=== PATIENT | female | born 1965 | race Caucasian/White ===

== ENCOUNTER 2021-10-01 18:01 | Emergency (ER) | payer BC ==
--- NOTE | 2021-10-01 19:23 | RAD REPORT ---
EXAM DESCRIPTION: RAD - Knee Left 3 View - 10/01/2021 7:10 pm CLINICAL HISTORY: Left knee pain FINDINGS: No fracture or dislocation is seen. Moderate joint effusion If patient continues have symptoms to suggest an occult fracture, ligamentous or meniscal injury MRI would be recommended
--- NOTE | 2021-10-01 20:08 | EDPHYS ---
Physician Documentation [facility] Name: Gayle Richard Age: 56 yrs Sex: Female : 1965 Arrival Date: 10/01/2021 Time: 18:03 Bed 9 Private MD: Mirian Matta ED Physician Yuriy Wu HPI: 10/01 20:18 This 56 yrs old Female presents to ER via Wheelchair with complaints of Knee Injury. kb 20:18 The patient presents with pain, swelling. The complaints affect the left knee. Context: kb The problem was sustained at home, resulted from an unknown cause, the patient can partially bear weight, the patient is able to ambulate. Onset: The symptoms/episode began/occurred today. Modifying factors: The symptoms are alleviated by nothing. the symptoms are aggravated by movement, weight bearing. Associated signs and symptoms: Pertinent positives: swelling, Pertinent negatives calf tenderness, fever, nausea, numbness, rash, tingling, vomiting, warmth, weakness. Treatment prior to arrival includes: no previous treatment. Severity of symptoms: At their worst the symptoms were moderate, in the emergency department the symptoms are unchanged. The patient has not experienced similar symptoms in the past. The patient has not recently seen a physician. Historical: - Allergies: 18:23 No Known Allergies; aa5 - PMHx: 18:23 None; aa5 - PSHx: 18:23 rhinoplasty; aa5 - Immunization history:: Client reports receiving the 1st dose of the Covid vaccine. - Social history:: Smoking status: Patient denies any tobacco usage or history of. ROS: 20:18 Constitutional: Negative for fever, chills, and weight loss. kb 20:18 MS/extremity: Positive for pain, swelling, of the left knee. 20:18 All other systems are negative. Exam: 20:18 Constitutional: This is a well developed, well nourished patient who is awake, alert, kb and in no acute distress. Head/Face: Normocephalic, atraumatic. ENT: Moist Mucous membranes Respiratory: Respirations even and unlabored. No increased work of breathing, no retractions or nasal flaring. Skin: Warm, dry with normal turgor. Normal color. Neuro: Awake and alert, GCS 15, oriented to person, place, time, and situation. Moves all extremities. Normal gait. Psych: Awake, alert, with orientation to person, place and time. Behavior, mood, and affect are within normal limits. 20:18 Musculoskeletal/extremity: Extremities: grossly normal except: noted in the left knee: pain, swelling, ROM: no acute changes, Circulation is intact in all extremities. Sensation intact. Weight bearing: can bear weight with assistance only, uses crutches. Vital Signs: 18:22 BP 147 / 99; Pulse 113; Resp 18 S; Temp 97.0(TE); Pulse Ox 100% on R/A; Weight 90.72 kg aa5 (R); Height 5 ft. 6 in. (167.64 cm) (R); 18:34 BP 155 / 95; Pulse 107; Resp 18; Pulse Ox 98% on R/A; Pain 7/10; ld1 18:22 Body Mass Index 32.28 (90.72 kg, 167.64 cm) aa5 MDM: 18:32 Patient medically screened. kb 20:17 Data reviewed: vital signs, nurses notes. Data interpreted: Pulse oximetry: on room air kb is 98 %. Interpretation: normal. Counseling: I had a detailed discussion with the patient and/or guardian regarding: the historical points, exam findings, and any diagnostic results supporting the discharge/admit diagnosis, radiology results, the need for outpatient follow up, a orthopedic surgeon, to return to the emergency department if symptoms worsen or persist or if there are any questions or concerns that arise at home. 10/01 18:24 Order name: Knee Left 3 View XRAY; Complete Time: 20:02 aa5 10/01 20:19 Order name: Miguel Wrap; Complete Time: 20:35 kb Administered Medications: No medications were administered Disposition: 10/02 12:38 Co-signature as Attending Physician, Yuriy Wu MD I agree with the assessment and kdr plan of care. Disposition Summary: 10/01/21 20:08 Discharge Ordered Location: Home kb Condition: Stable kb Diagnosis - Pain in left knee kb Followup: kb - With: Emergency Department - When: As needed - Reason: Worsening of condition Followup: kb - With: Private Physician - When: 2 - 3 days - Reason: Recheck today's complaints, Continuance of care, Re-evaluation by your physician Discharge Instructions: - Discharge Summary Sheet kb - Knee Effusion, [id number] kb - Acute Knee Pain, Adult, [id number] kb Forms: - Medication Reconciliation Form kb - Thank You Letter kb - Antibiotic Education kb - Prescription Opioid Use kb Prescriptions: - Diclofenac Sodium 75 mg Oral tablet,delayed release (DR/EC) - take 1 tablet by ORAL route 2 times per day As needed; 30 tablet; Refills: 0, kb Product Selection Permitted Signatures: Dispatcher [employer] EDSusan Rosas, STUDIO CONTROL OPERATOR-C STUDIO CONTROL OPERATOR-Venanciob Yuriy Wu MD MD kdr Calderon, Audri, RN RN aa5
--- NOTE | 2021-10-01 20:08 | ER ---
Nurse's Notes [facility] Name: Gayle Richard Age: 56 yrs Sex: Female : 1965 Arrival Date: 10/01/2021 Time: 18:03 Bed 9 Private MD: Mirian Matta Diagnosis: Pain in left knee Presentation: 10/01 18:22 Chief complaint: Patient states: twisted left knee today. Denies fall. aa5 18:22 Coronavirus screen: At this time, the client does not indicate any symptoms associated aa5 with coronavirus-19. Ebola Screen: No symptoms or risks identified at this time. Initial Sepsis Screen: Does the patient meet any 2 criteria? No. Patient's initial sepsis screen is negative. Does the patient have a suspected source of infection? No. Patient's initial sepsis screen is negative. Risk Assessment: Do you want to hurt yourself or someone else? Patient reports no desire to harm self or others. Onset of symptoms was September 2021. 18:22 Acuity: ERICKA 4 aa5 18:22 Method Of Arrival: Wheelchair aa5 Historical: - Allergies: 18:23 No Known Allergies; aa5 - PMHx: 18:23 None; aa5 - PSHx: 18:23 rhinoplasty; aa5 - Immunization history:: Client reports receiving the 1st dose of the Covid vaccine. - Social history:: Smoking status: Patient denies any tobacco usage or history of. Screenin:34 Abuse screen: Denies threats or abuse. Denies injuries from another. Nutritional ld1 screening: No deficits noted. Tuberculosis screening: No symptoms or risk factors identified. Fall Risk None identified. Assessment: 18:34 General: Appears in no apparent distress. comfortable, Behavior is calm, cooperative, ld1 appropriate for age, anxious. Pain: Complains of pain in left knee Pain does not radiate. Pain currently is 7 out of 10 on a pain scale. Quality of pain is described as throbbing, Pain began 4 hours ago. Is continuous. Neuro: Level of Consciousness is awake, alert, obeys commands, Oriented to person, place, time, situation. Cardiovascular: Capillary refill < 3 seconds Patient's skin is warm and dry. Respiratory: Airway is patent Respiratory effort is even, unlabored, Respiratory pattern is regular, symmetrical. GI: Abdomen is round non-distended. : No signs and/or symptoms were reported regarding the genitourinary system. EENT: No signs and/or symptoms were reported regarding the EENT system. Derm: No signs and/or symptoms reported regarding the dermatologic system. Musculoskeletal: Range of motion: limited in left knee Reports pain in left knee. Vital Signs: 18:22 BP 147 / 99; Pulse 113; Resp 18 S; Temp 97.0(TE); Pulse Ox 100% on R/A; Weight 90.72 kg aa5 (R); Height 5 ft. 6 in. (167.64 cm) (R); 18:34 BP 155 / 95; Pulse 107; Resp 18; Pulse Ox 98% on R/A; Pain 7/10; ld1 18:22 Body Mass Index 32.28 (90.72 kg, 167.64 cm) 5 ED Course: 18:03 Patient arrived in ED. as 18:03 Mirian Matta is Private Physician. as 18:22 Arm band placed on. 5 18:23 Triage completed. aa5 18:24 [facility] kb 18:24 Yuriy Wu MD is Attending Physician. kb 18:34 Yue Schafer, RICK is Primary Nurse. ld1 18:34 Patient has correct armband on for positive identification. Placed in gown. Bed in low ld1 position. Call light in reach. Side rails up X2. Pulse ox on. NIBP on. Door closed. Noise minimized. 18:34 No provider procedures requiring assistance completed. ld1 19:10 Knee Left 3 View XRAY In Process Unspecified. EDMS Administered Medications: No medications were administered Outcome: 20:08 Discharge ordered by . kb 20:49 Patient left the ED. [facility] Signatures: Dispatcher [employer] EDMS Susan Field FNP-C FNP-Sandie Ivy Audri RN RN [facility] Kenneth Hutson [facility] Yue Schafer, RN RN ld1 Corrections: (The following items were deleted from the chart) 18:23 18:22 Chief complaint: Patient states: twisted left knee 5 5
[2021-10-01 21:01] VITALS: TEMP 97
[2021-10-01 21:03] VITALS: BP 155/95; O2SAT 98
== END 2021-10-01 20:49 | disposition home or self-care (01) ==
LOC: ER 18:01
DX: M25.562 Pain in left knee (principal)
CPT/HCPCS: 99283

== ENCOUNTER 2024-10-07 04:29 | Emergency (ER) | payer BC ==
--- OUTSIDE RECORDS SUMMARY | 2024-10-07 04:32 | XMS REPORT | Continuity of Care Document ---
Author Name Unknown Address [address] [place] [address] [employer] Address [address] [place] [id number] Care Team Providers Care Woods Rider Name Role Phone [email or web address] Attending Clinician Unavaila ble [email or web address] Admitting Clinician Unavaila ble Encounters Start Date/Time End Date/Time Encounter Type Admission Type Attending Clinicians Care Facility Care Department Encounter ID Source 2023-09-07 00:00:00 2023-09-07 00:00:00 Outpatient [email or web address] [facility] [id number] [facility]
--- NOTE | 2024-10-07 04:59 | EDPHYS ---
Physician Documentation [facility] Name: Gayle Richard Age: 59 yrs Sex: Female : 1965 Arrival Date: 10/07/2024 Time: 04: Bed 7 Private MD: ED Physician Navneet Macedo HPI: 10/07 04:44 This 59 yrs old Female presents to ER via Unassigned with complaints of Hand sp4 Swelling. 10/08 01:42 Patient presents with acute left hand pain and swelling secondary to recent pinning of sp4 the left small finger. Historical: - Allergies: 10/07 05:00 No Known Allergies; ha1 - PMHx: 05:00 None; ha1 - PSHx: 05:00 rhinoplasty; ha1 - Immunization history:: Adult Immunizations up to date. - Infectious Disease History:: Denies. - Social history:: Smoking status: Patient denies any tobacco usage or history of. - Family history:: not pertinent. ROS: 10/08 01:48 Constitutional: Negative for fever, chills, and weight loss, positive left hand pain sp4 and swelling All other systems are negative, Exam: 01:48 Constitutional: This is a well developed, well nourished patient who is awake, alert, sp4 and in no acute distress. Head/Face: Normocephalic, atraumatic. Eyes: Pupils equal round and reactive to light, extra-ocular motions intact. Lids and lashes normal. Conjunctiva and sclera are not injected. Cornea within normal limits. Periorbital areas with no swelling, redness, or edema. ENT: Nares patent. No nasal discharge, no septal abnormalities noted. Tympanic membranes are normal and external auditory canals are clear. Oropharynx with no redness, swelling, or masses, exudates, or evidence of obstruction, uvula midline. Mucous membranes moist. Neck: Trachea midline, no thyromegaly or masses palpated, and no cervical lymphadenopathy. Supple, full range of motion without nuchal rigidity, or vertebral point tenderness. Chest/axilla: Normal chest wall appearance and motion. Nontender with no deformity. No lesions are appreciated. Cardiovascular: Regular rate and rhythm with a normal S1 and S2. No gallops, murmurs, or rubs. Normal PMI, no JVD. No pulse deficits. Respiratory: Lungs have equal breath sounds bilaterally, clear to auscultation and percussion. No rales, rhonchi or wheezes noted. No increased work of breathing, no retractions or nasal flaring. Abdomen/GI: Soft, with normal bowel sounds. No distension or tympany. No guarding or rebound. No evidence of tenderness throughout. Back: No spinal tenderness. No costovertebral tenderness. Skin: Warm, dry with normal turgor. Normal color with no rashes, no lesions, and no evidence of cellulitis. MS/ Extremity: Pulses equal, no cyanosis. Neurovascular intact. Full, normal range of motion. Positive for left hand small amount of swelling and tenderness at the site of the postoperative puncture wound at left dorsal left fifth metacarpal area. Neuro: Awake and alert, GCS 15, oriented to person, place, time, and situation. Cranial nerves II-XII grossly intact. Motor strength 5/5 in all extremities. Sensory grossly intact. Psych: Awake, alert, with orientation to person, place and time. Behavior, mood, and affect are within normal limits Vital Signs: 10/07 04:36 BP 155 / 114; Pulse 92; Resp 19 S; Temp 98.1(T); Pulse Ox 96% on R/A; Weight 90.72 kg; ha1 MDM: 04:58 Medical Screening Exam initiated sp4 10/08 01:51 Differential diagnosis: closed fracture, contusion, abrasion, tendonitis, Post sp4 operative infection. Data reviewed: vital signs, nurses notes. ED course: Patient was informed that she should be covered by Bactrim and cephalexin for presumed postoperative puncture wound infection. She should follow-up with her orthopedist Dr. Pearce for repeat examination of the left hand. Administered Medications: 10/07 05:24 Drug: Trimethoprim-Sulfamethoxazole PO (160 mg-800 mg (DS) 1 tablet PO once Route: PO; al5 05:24 Follow up: Response: No adverse reaction; Medication administered at discharge. al5 05:24 Drug: Cephalexin PO 500 mg PO once Route: PO; al5 05:24 Follow up: Response: No adverse reaction; Medication administered at discharge. al5 Disposition Summary: 10/07/24 04:58 Discharge Ordered Notes: Location: Home sp4 Problem: new sp4 Symptoms: have improved sp4 Condition: Stable sp4 Diagnosis - Left hand Post Operative puncture infection , Left hand post operative swelling sp4 Followup: sp4 - With: Codey Poole MD - When: 7 - 10 days - Reason: Recheck today's complaints Discharge Instructions: - Discharge Summary Sheet sp4 - Puncture Wound, [id number]-[id number] sp4 Forms: - Patient Portal Instructions sp4 Prescriptions: - Cephalexin 500 mg Oral Capsule - take 1 capsule ORAL route every 12 hours for 10 days; 20 capsule; Refills: 0, sp4 Product Selection Permitted - Bactrim DS 800-160 mg Oral Tablet - take 1 tablet ORAL route every 12 hours for 10 days; 20 tablet; Refills: 0, sp4 Product Selection Permitted Signatures: Mónica Guo RN RN ha1 Navneet Macedo MD MD sp4 Tabitha Varner RN RN al5
[2024-10-07] MEDS ORDERED: CEPHALEXIN 250 MG CAP ONE (05:18)
[2024-10-07] MEDS ORDERED: SMZ./TMP. 800/160 MG TABLET ONE (05:19)
--- NOTE | 2024-10-07 05:30 | ER ---
Nurse's Notes [facility] Name: Gayle Richard Age: 59 yrs Sex: Female : 1965 Arrival Date: 10/07/2024 Time: 04:29 Bed 7 Private MD: Diagnosis: Left hand Post Operative puncture infection , Left hand post operative swelling Presentation: 10/07 04:36 Chief complaint: Patient states: HAD A FRACTURE ON THE LEFT HAND AND PINS WERE REMOVED ha1 3 DAYS AGO. TODAY I NOTICED REDNESS AND SWELLING AT THE INCISION SITE. 04:36 Coronavirus screen: Client denies travel out of the [place] in the last 14 days. Ebola ha1 Screen: No symptoms or risks identified at this time. Initial Sepsis Screen: Does the patient meet any 2 criteria? No. Patient's initial sepsis screen is negative. Does the patient have a suspected source of infection? No. Patient's initial sepsis screen is negative. Risk Assessment: Do you want to hurt yourself or someone else? Patient reports no desire to harm self or others. Onset of symptoms was October 07, 2024. 04:36 Method Of Arrival: Ambulatory ha1 04:36 Acuity: ERICKA 5 ha1 Triage Assessment: 04:36 General: Appears comfortable, Behavior is calm, cooperative. Pain: Denies pain. Neuro: ha1 Level of Consciousness is awake, alert, obeys commands, Oriented to person, place, time, situation. Cardiovascular: Patient's skin is warm and dry. Respiratory: Airway is patent Respiratory effort is even, unlabored, Respiratory pattern is regular, symmetrical. Musculoskeletal: Swelling present in right hand. Historical: - Allergies: 05:00 No Known Allergies; ha1 - PMHx: 05:00 None; ha1 - PSHx: 05:00 rhinoplasty; ha1 - Immunization history:: Adult Immunizations up to date. - Infectious Disease History:: Denies. - Social history:: Smoking status: Patient denies any tobacco usage or history of. - Family history:: not pertinent. Screenin: [facility] ED Fall Risk Assessment (Adult) History of falling in the last 3 months, al5 including since admission No falls in past 3 months (0 pts) Confusion or Disorientation No (0 pts) Intoxicated or Sedated No (0 pts) Impaired Gait No (0 pts) Mobility Assist Device Used No (0 pt) Altered Elimination No (0 pt) Score/Fall Risk Level 0 - 2 = Low Risk Oriented to surroundings, Maintained a safe environment, Hourly rounding (assess needs \T\ fall precautionary measures) done. Abuse screen: Denies threats or abuse. Denies injuries from another. Nutritional screening: No deficits noted. Tuberculosis screening: No symptoms or risk factors identified. Assessment: 04:36 Reassessment: SEE TRIAGE ASSESSMENT. ha1 05:26 General: Appears in no apparent distress. Behavior is calm, cooperative. Pain: al5 Complains of pain in right hand. Neuro: Level of Consciousness is awake, alert, obeys commands, Oriented to person, place, time, situation. Neuro: Denies weakness blurred vision dizziness, headache. Cardiovascular: Capillary refill < 3 seconds Patient's skin is warm and dry. Cardiovascular: Denies chest pain, shortness of breath. Respiratory: Airway is patent Respiratory effort is even, unlabored, Respiratory pattern is regular, symmetrical. GI: No signs and/or symptoms were reported involving the gastrointestinal system. : No signs and/or symptoms were reported regarding the genitourinary system. EENT: No signs and/or symptoms were reported regarding the EENT system. Derm: red and swollen wound to L hand. Musculoskeletal: No signs and/or symptoms reported regarding the musculoskeletal system. Vital Signs: 04:36 BP 155 / 114; Pulse 92; Resp 19 S; Temp 98.1(T); Pulse Ox 96% on R/A; Weight 90.72 kg; ha1 ED Course: 04:32 Patient arrived in ED. gm2 04:44 Navneet Macedo MD is Attending Physician. sp4 04:57 Codey Poole MD is Referral Physician. sp4 05:00 Triage completed. ha1 05:26 Tabitha Varner, RICK is Primary Nurse. al5 05:26 Arm band placed on right wrist. Patient placed in the treatment room, on a stretcher. al5 05:27 Patient has correct armband on for positive identification. Bed in low position. Call al5 light in reach. Side rails up X 1. Provided Education on: medications, discharge follow up. 05:27 No provider procedures requiring assistance completed. Patient did not have IV access al5 during this emergency room visit. Administered Medications: 05:24 Drug: Trimethoprim-Sulfamethoxazole PO (160 mg-800 mg (DS) 1 tablet PO once Route: PO; al5 05:24 Follow up: Response: No adverse reaction; Medication administered at discharge. al5 05:24 Drug: Cephalexin PO 500 mg PO once Route: PO; al5 05:24 Follow up: Response: No adverse reaction; Medication administered at discharge. al5 Medication: 05:27 VIS not applicable for this client. al5 Outcome: 04:58 Discharge ordered by . kelly 05:29 Discharged to home ambulatory, al5 05:29 Condition: good 05:29 Discharge instructions given to patient, Instructed on discharge instructions, follow up and referral plans. medication usage, Demonstrated understanding of instructions, follow-up care, medications, Prescriptions given X 2, 05:30 Patient left the ED. al5 Signatures: Móinca Guo RN RN ha1 Navneet Macedo MD MD sp4 Lupe Juárez 2 Tabitha Varner RN RN al5
[2024-10-07 06:40] VITALS: BP 155/114; TEMP 98.1; O2SAT 96
== END 2024-10-07 05:30 | disposition home or self-care (01) ==
LOC: ER 04:29
DX: T81.49XA Infection following a procedure, other surgical site, initial encounter (principal)
CPT/HCPCS: 99283